=== PATIENT | male | born 1955 | race Caucasian/White ===

== ENCOUNTER 2019-03-07 21:11 | Emergency (ER) | payer BC ==
[2019-03-07] MEDS ORDERED: Acetaminophen/Codeine 30-300mg Tablet ONE (21:33)
--- NOTE | 2019-03-07 22:12 | RAD ---
Chest one view right RIBS 2 views: HISTORY: Pain Heart size is normal. The lungs are clear. No pneumothorax or pleural effusion. There is an irregular lucency through the right 10th and probably ninth ribs probably representing nondisplaced fractures. IMPRESSION: Probable nondisplaced right rib fractures in the ninth and 10th rib region. No pneumothorax, pleural effusion or other acute process.
--- NOTE | 2019-03-07 22:28 | RAD ---
RIGHT HAND THREE VIEWS: 03/07/19 HISTORY: Fall. Pain. FINDINGS: There appears to be amputation of the second digit at the level of the proximal interphalangeal joint space. There is irregularity involving the proximal phalanx of the second digit likely due to fractu re. There is intra-articular distention. Additional fractures are not appreciated. There is mild degenerative changes throughout the hand. IMPRESSION: Fracture involving the proximal aspect of the proximal phalanx of the second digit. There is intra-ar ticular extension. POS: PPP
--- NOTE | 2019-03-07 22:30 | RAD ---
PELVIS ONE VIEW: 03/07/19 HISTORY: Pain. Patient fell from a ladder. COMPARISON: None. FINDINGS: Sacroiliac joints are patent and symmetric. Sacral ala are unremarkable. Intact bony pelvis. Contour of both femoral heads are maintained and the hip joint spaces are symmetric. IMPRESSION: Unremarkable AP pelvic radiograph. POS: PPP
[2019-03-07] MEDS ORDERED: Adacel (T-DAP) 0.5 ML SYRINGE ONE (22:39)
== END 2019-03-07 22:55 | disposition home or self-care (01) ==
LOC: NAV ERS 21:11
DX: S62.610A Displaced fracture of proximal phalanx of right index finger, initial encounter for closed fracture (principal); S22.41XA Multiple fractures of ribs, right side, initial encounter for closed fracture; S61.011A Laceration without foreign body of right thumb without damage to nail, initial encounter; S40.811A Abrasion of right upper arm, initial encounter; F17.220 Nicotine dependence, chewing tobacco, uncomplicated; W11.XXXA Fall on and from ladder, initial encounter
CPT/HCPCS: 12001; 72170; 90471; 90715

== ENCOUNTER 2019-10-08 08:23 | Outpatient (CLI) | payer OTHER ==
--- NOTE | 2019-10-08 10:12 | RAD ---
LEFT SHOULDER 3 VIEWS: HISTORY: Left shoulder pain. FINDINGS: Left apical pleural thickening. No evidence for acute fracture or dislocation of the left shoulder. IMPRESSION: Unremarkable left shoulder. Healed left clavicle fracture. Left apical pleural thickening. POS: OFF
== END 2019-10-08 08:24 | disposition home or self-care (01) ==
LOC: NAV RAD 08:23
PROVIDERS: ATTEND Internal Medicine
DX: M25.512 Pain in left shoulder (principal); J92.9 Pleural plaque without asbestos

== ENCOUNTER 2019-11-06 09:47 | Outpatient (CLI) | payer BC ==
--- NOTE | 2019-11-06 12:03 | CT ---
CT CHEST WITHOUT CONTRAST: Date; 11/06/2019 HISTORY: Left pleural thickening. FINDINGS: Absence of IV contrast reduces the sensitivity of exam, particularly for evaluation of mediastinal, h ilar, and vascular structures. No aneurysmal dilatation of the thoracic aorta is seen. No pleural or pericardial effusions are ident ified. No significant pleural thickening or calcified pleural plaques are identified. There is a calcified g ranuloma in the left lung base. No noncalcified lung nodules or masses are seen. There are degenerati ve changes in the spine. Upper abdominal tomograms demonstrate mild splenomegaly with the spleen measuring 14.2 cm in AP dimen keyon. IMPRESSION: 1. Old granulomatous disease. 2. Mild splenomegaly. POS: OFF
== END 2019-11-06 09:48 | disposition home or self-care (01) ==
LOC: NAV CT 09:47
PROVIDERS: ATTEND Internal Medicine
DX: M25.512 Pain in left shoulder (principal); J18.9 Pneumonia, unspecified organism; R16.1 Splenomegaly, not elsewhere classified
CPT/HCPCS: 71250

== ENCOUNTER 2024-05-21 15:36 | Outpatient (CLI) | payer BC | END 2024-05-21 15:37 | disposition home or self-care (01) | LOC: NAV RAD 15:36 | PROVIDERS: ATTEND Family Medicine | DX: M54.2 Cervicalgia (principal); M50.322 Other cervical disc degeneration at C5-C6 level; M50.323 Other cervical disc degeneration at C6-C7 level | CPT/HCPCS: 72040 ==